=== PATIENT | female | born 1990 | race Caucasian/White ===

== ENCOUNTER → 2018-04-17 | Outpatient (CLI) | payer OTHER ==
[~2018-04-17] MED LIST: DOCU100 PO; IBUP800 PO; Vitafol-Ob+Dha1 EACH PO
[2018-04-21 00:11] LABS: CHLAMYDIA BY NAA Negative (Negative); GONOCOCCUS BY NAA Negative (Negative); TRICH VAG BY NAA Negative (Negative)
== END | disposition home or self-care (01) ==
LOC: LAB 15:55 → LAB SHORT 15:55
PROVIDERS: Obstetrics & Gynecology
DX: Z20.2 Contact with and (suspected) exposure to infections with a predominantly sexual mode of transmission (principal)
CPT/HCPCS: 87491; 87591; 87661

== ENCOUNTER → 2020-07-30 | Outpatient (CLI) | payer OTHER | END | disposition home or self-care (01) | LOC: PLD 10:20 → LAB SHORT 10:20 | DX: D22.4 Melanocytic nevi of scalp and neck (principal) | CPT/HCPCS: 88305 ==

== ENCOUNTER → 2022-03-17 | Outpatient (CLI) | payer OTHER ==
[2022-03-18 15:12] LABS: HPV 16 Negative (Negative); HPV 18 Negative (Negative); HPV OTHER HR TYPES Negative (Negative)
== END | disposition home or self-care (01) ==
LOC: LAB 16:09 → LAB SHORT 16:09
PROVIDERS: Obstetrics & Gynecology
DX: Z12.4 Encounter for screening for malignant neoplasm of cervix (principal)
CPT/HCPCS: 87624; G0123

== ENCOUNTER 2024-09-26 11:30 | Day surgery (SDC) | payer OTHER ==
[~2024-09-26] VITALS: Ht 160 cm; Wt 74.2 kg
[~2024-09-26 11:30] MED LIST changes: +Lactated Ringer's 1,000 ML IV ONE; +Ropivacaine 0.5% HCL/PF 5 MG/ML 30ML Vial ONE
[2024-09-26] MEDS ORDERED: METF500 (11:52)
[2024-09-26] MEDS ORDERED: Lactated Ringer's 1,000 ML IV ONE (11:55)
[2024-09-26] MEDS ORDERED: Dexamethasone Sod Phos 10 MG/ML 1ML VIAL ONE (12:01)
[2024-09-26] MEDS ORDERED: Rocuronium Bromide 10 MG/ML 5ML Injection IV ONE (12:01)
[2024-09-26] MEDS ORDERED: FentaNYL Citrate 50 MCG/ML 2 ML Injection ONE (12:01)
[2024-09-26] MEDS ORDERED: Ondansetron HCl 2 MG / ML 2ML Vial ONE (12:01)
[2024-09-26] MEDS ORDERED: propofoL 20 ML IV ONE (12:01)
[2024-09-26] MEDS ORDERED: Sugammadex Sodium 200 MG/2ML SDV (100 MG/ML) ONE (12:02)
[2024-09-26 14:46] VITALS: BP 118/76
--- NOTE | 2024-09-26 16:11 | NUR ---
09/26/24 [id number] SamanthaJayde james [id number]: PATIENT REPORTED PAIN WAS TOLERABLE, A 3/10 CRAMPING, STATED IT WAS "JUST UNCOMFORTABLE" AND EXPRESSED READINESS TO GO HOME. PATIENT WAS NOT GIVEN IBUPROFEN PRIOR TO DISCHARGE BECAUSE SHE RECEIVED TORADOL DURING THE PROCEDURE FROM ANESTHESIA. PATIENT WAS EDUCATED ABOUT WAITING 6 HOURS AFTER THE TORADOL WAS GIVEN BEFORE TAKING ANY IBUPROFEN BECAUSE THEY ARE IN THE SAME CLASS AND THIS WAS WRITTEN ON HER DISCHARGE INSTRUCTIONS.
== END 2024-09-26 15:20 | disposition home or self-care (01) ==
LOC: ORSCSDS 11:30
PROVIDERS: Obstetrics & Gynecology
PROC: 0UB14ZZ Excision of Left Ovary, Percutaneous Endoscopic Approach (ICD-10-PCS; principal; 2024-09-26 13:00)
PROC: 0UT74ZZ Resection of Bilateral Fallopian Tubes, Percutaneous Endoscopic Approach (ICD-10-PCS; principal; 2024-09-26 13:00)
DX: Z30.2 Encounter for sterilization (principal); D27.1 Benign neoplasm of left ovary; Z79.84 Long term (current) use of oral hypoglycemic drugs
CPT/HCPCS: 88302; J1100; J2405; J2704; J2795; J3010; J7120